=== PATIENT | female | born 1960 | race Caucasian/White ===

== ENCOUNTER 2016-08-28 06:32 | Day surgery (SDC) | payer OTHER ==
[~2016-08-28] VITALS: Ht 157.5 cm; Wt 113.0 kg
[~2016-08-28 06:32] MED LIST: ALLEGRA ALLERG180 MG PO; ALLEGRA ALLERGY60 MG PO; ALLEGRA-D 121 TABLET PO; ALLEGRA30 MG PO; ASPIRIN81 M1 PO; AUGMENTIN875 MG PO; AZITHROMYCIN250 MG1 PO; CALCIUM 500 MG1 EACH PO; CEFTIN500 MG PO; DEXILANT30 MG PO; DEXILANT60 MG PO; DICLOFENAC SOD100 MG PO; DOXYCYCLINE HY100 MG PO; FLONASE16 G1 LEFT NARE; FLONASE16 G1 RIGHT NARE; HYCODAN SYRUP480 ML PO; INDOCIN25 MG PO; LO-DOSE ASPIRIN81 M1 PO; MUCINEX1200 MG PO; MUCINEX600 MG PO; MULTIPLE VITAM1 EAC4 PO; NEXIUM40 MG PO; NORCO 7.5/321 TABLET PO; OMEGA 3-6-9 11200 MG PO; PREDNISONE50 MG PO; RHINOCORT AQUA8.6 G1 IH; TYLENOL ARTHRI650 MG PO; TYLENOL EXTRA500 MG PO; VENTOLIN HFA18 GM IH; ZETIA10 MG PO
[2016-08-28 07:21] VITALS: BP 125/67
[2016-08-28 12:10] VITALS: BP 121/83
[2016-08-28 13:33] VITALS: BP 160/80
== END 2016-08-28 13:30 | disposition home or self-care (01) ==
LOC: SDC 06:32
PROC: 09SM0ZZ Reposition Nasal Septum, Open Approach (ICD-10-PCS; principal; 2016-08-28)
DX: J34.2 Deviated nasal septum (principal); J31.0 Chronic rhinitis; K21.9 Gastro-esophageal reflux disease without esophagitis; J45.909 Unspecified asthma, uncomplicated; Z88.0 Allergy status to penicillin
CPT/HCPCS: J0330; J0690; J1100; J2250; J2405; J3010; J3301; J7050

== ENCOUNTER 2016-12-23 23:11 | Emergency (ER) | payer OTHER ==
[~2016-12-23] VITALS: Ht 157.5 cm; Wt 112.4 kg
[2016-12-23 23:54] LABS: HEMATOCRIT 40.3 % (36.0-46.0); MCH 29.8 PG (29.0-34.0); MCV 90.2 FL (83-99); MEAN PLAT.VOLUME 9.6 uM^3 (9.5-12.4); PLATELET COUNT 277 K/uL (156-360); RBC DIS.WIDTH-CV 13.9 % (11.8-14.6); RBC DIS.WIDTH-SD 45.9 % (39-53); RED BLOOD COUNT 4.47 M/uL (3.80-5.20); WHITE BLOOD COUNT 7.7 K/uL (4.1-10.2)
[2016-12-24 00:03] LABS: CHLORIDE 106 mEq/L (99-109); POTASSIUM 4.2 mEq/L (3.7-5.4); SODIUM 138 mEq/L (136-147)
[2016-12-24 00:05] LABS: GLUCOSE 101 mg/dL (70-99)
[2016-12-24 00:06] LABS: ANION GAP 10 MEQ/L (2-14)
[2016-12-24 00:07] LABS: TOTAL BILIRUBIN 0.2 mg/dL (0.0-1.0)
[2016-12-24 00:08] LABS: ALKALINE PHOSPHATASE 86 IU/L (3-129)
[2016-12-24 00:09] LABS: GFR ESTIMATE (CALCULATED) 54 mL/min/
[2016-12-24 00:10] LABS: UREA NITROGEN (BUN) 29 mg/dL (9-23)
[2016-12-24 00:12] LABS: LIPASE 18 U/L (1.0-51.0)
[2016-12-24 00:15] LABS: TROP-I INTERPRETATION NEGATIVE; TROPONIN-I < 0.01 ng/mL (0.0-0.30)
[2016-12-24] MEDS ORDERED: BACTRIM,SEPT1 TABLET PO (00:26)
[2016-12-24 02:46] LABS: ADD MIUA? NO; BILIRUBIN NEGATIVE; BLOOD NEGATIVE; COLOR STRAW ((YELLOW)); GLUCOSE (STRIP) NEGATIVE; KETONES NEGATIVE; LEUKOCYTES NEGATIVE; NITRITE NEGATIVE; PROTEIN (STRIP) NEGATIVE; SPECIFIC GRAVITY 1.045 (1.000-1.030); UCUL ADDED? NO; UROBILINOGEN 0.2 MG/DL (0.2-1.0)
[2016-12-24 02:54] LABS: TROP-I INTERPRETATION NEGATIVE; TROPONIN-I 0.01 ng/mL (0.0-0.30)
[2016-12-24] MEDS ORDERED: PEPCID20 MG PO (03:07)
[2016-12-24] MEDS ORDERED: NORCO 5/3251 TABLET PO (03:07)
[2016-12-24 03:21] VITALS: BP 116/65
== END 2016-12-24 03:24 | disposition home or self-care (01) ==
LOC: EME 23:11
PROVIDERS: Emergency Medicine
DX: R10.13 Epigastric pain (principal); R07.89 Other chest pain; R10.11 Right upper quadrant pain; M54.9 Dorsalgia, unspecified; M25.511 Pain in right shoulder; R11.0 Nausea; R19.5 Other fecal abnormalities; Z87.442 Personal history of urinary calculi; J45.909 Unspecified asthma, uncomplicated; Z90.721 Acquired absence of ovaries, unilateral
CPT/HCPCS: 74177; 76705; 80053; 81003; 83690; 84484; 85027; 93005; 99281; 99285; J2270; J2405; J7030; S0028

== ENCOUNTER → 2017-01-05 | Outpatient (CLI) | payer OTHER ==
[~2017-01-05] MED LIST changes: +BACTRIM,SEPT1 TABLET PO; +NORCO 5/3251 TABLET PO; +PEPCID20 MG PO
== END | disposition home or self-care (01) ==
LOC: NUC 13:00
DX: R10.11 Right upper quadrant pain (principal)
CPT/HCPCS: 78226; A9510